=== PATIENT | male | born 1945 | race African-American/Black ===

== ENCOUNTER 2022-12-24 13:25 | Inpatient (IN) | payer MEDICARE, MEDICAID ==
[~2022-12-24] VITALS: Ht 175.3 cm; Wt 59.9 kg
[2022-12-24] MEDS ORDERED: ACETAMINOPHEN 325MG TABLET PO STA (13:49)
[2022-12-24] MEDS ORDERED: ACETAMINOPHEN 325MG TABLET PO NR (13:49)
[2022-12-24] MEDS ORDERED: SODIUM CHLORIDE 0.9% 1,000 ML IV ONE (14:00)
[2022-12-24] MEDS ORDERED: ONDANSETRON HCL 4MG/2ML INJ IV ONE (14:00)
[2022-12-24] MEDS ORDERED: ONDANSETRON HCL 4MG/2ML INJ IV NR (14:00)
[2022-12-24 14:37] LABS: HEMATOCRIT. 37.1 % (42.0-52.0); HEMOGLOBIN. 12.7 g/dL (14.0-18.0); MEAN CORPUSCULAR HEMOGLOBIN 31.6 pg (28.0-32.0); MEAN CORPUSCULAR VOLUME 91.9 fL (80.0-94.0); MEAN PLATELET VOLUME 8.1 fl (7.4-10.4); PLATELET 354 x1000/uL (130-400); RED BLOOD CELL COUNT 4.04 mill/uL (4.7-6.1); RED CELL DISTRIBUTION WIDTH 13.4 % (11.6-14.6)
[2022-12-24 14:57] LABS: CHLORIDE 99 mEq/L (98-107)
[2022-12-24 15:00] LABS: PLATELET ESTIMATE NORMAL
[2022-12-24] MEDS ORDERED: VANCOMYCIN 1G PREMIX 200 ML IV NR ×2 (15:15)
[2022-12-24] MEDS ORDERED: PIPERACILLIN/TAZ 3.375G PREMIX 50 ML IV NR (15:15)
[2022-12-24] MEDS: SODIUM CHLORIDE 0.9% 1,000 ML IV SCH (23:07)
[2022-12-25 02:34] LABS: CLARITY URINE BLOODY (CLEAR); COLOR URINE RED (YELLOW); PH URINE 7.5 (4.5-8.0); PROTEIN URINE 3+ (NEGATIVE); SPECIFIC GRAVITY URINE 1.015 (1.005-1.030)
[2022-12-25 02:35] LABS: KETONES URINE 2+ (NEGATIVE); LEUKOCYTE ESTERASE URINE 2+ (NEGATIVE); NITRITE URINE POSITIVE (NEGATIVE); OCCULT BLOOD URINE 4+ (NEGATIVE); UROBILINOGEN URINE 0.2 E.U./dL (0.2-1.0)
[2022-12-25 11:45] VITALS: BP 126/67
[2022-12-25] MEDS: SODIUM CHLORIDE 0.9% 1,000 ML IV SCH (14:29)
[2022-12-25 16:00] VITALS: BP 131/57
[2022-12-25] MEDS ORDERED: CLONIDINE 0.1MG TABLET PO PRN (16:30)
[2022-12-25] MEDS ORDERED: ONDANSETRON HCL 4MG/2ML INJ IV PRN (16:30)
[2022-12-25] MEDS ORDERED: IPRATROPIUM/ALBUTEROL 0.5-3(2.5)MG/3ML NEB HHN PRN (16:30)
[2022-12-25] MEDS ORDERED: DIPHENHYDRAMINE 50MG/ML VIAL IV PRN (16:30)
[2022-12-25] MEDS ORDERED: ACETAMINOPHEN 325MG TABLET PO PRN (16:30)
[2022-12-25] MEDS ORDERED: ALBUTEROL (0.083%) 2.5MG/3ML NEB HHN PRN (16:45)
[2022-12-25] MEDS ORDERED: IPRATROPIUM BROMIDE (0.02%) 0.5MG/2.5ML NEB HHN PRN (16:45)
[2022-12-25] MEDS ORDERED: DEXTROSE 50% WATER 50ML SYRINGE IV PRN (17:15)
[2022-12-25 19:01] VITALS: BP 125/86
[2022-12-25 20:00] VITALS: BP 115/47
[2022-12-25] MEDS: INSULIN LISPRO 100 UNITS/ML SUBCUT SCH (20:39)
[2022-12-25] MEDS: BLOOD SUGAR DIAGNOSTIC STRIP TEST SCH (20:40)
[2022-12-25] MEDS: PIPERACILLIN/TAZOBACTAM 3.375 G in DEXTROSE 5% WATER 50 ML IV SCH (20:44)
[2022-12-26] VITALS: BP 114/50
[2022-12-26] MEDS: SODIUM CHLORIDE 0.9% 1,000 ML IV SCH ×3 (00:42→15:27)
[2022-12-26 04:00] VITALS: BP 113/48
[2022-12-26] MEDS ORDERED: VANCOMYCIN 500MG PREMIX 100 ML IV SCH (05:00)
[2022-12-26] MEDS: BLOOD SUGAR DIAGNOSTIC STRIP TEST SCH ×4 (06:43→20:45)
[2022-12-26 06:44] LABS: HEMATOCRIT. 28.2 % (42.0-52.0); HEMOGLOBIN. 9.9 g/dL (14.0-18.0); MEAN CORPUSCULAR VOLUME 91.2 fL (80.0-94.0); MEAN PLATELET VOLUME 8.4 fl (7.4-10.4); PLATELET 273 x1000/uL (130-400); RED BLOOD CELL COUNT 3.09 mill/uL (4.7-6.1)
[2022-12-26 07:12] LABS: CHLORIDE 109 mEq/L (98-107)
[2022-12-26 08:00] VITALS: BP 170/53
[2022-12-26] MEDS: INSULIN LISPRO 100 UNITS/ML SUBCUT SCH ×4 (08:02→20:44)
[2022-12-26] MEDS: PIPERACILLIN/TAZOBACTAM 3.375 G in DEXTROSE 5% WATER 50 ML IV SCH ×2 (08:58→20:55)
[2022-12-26 10:47] LABS: PLATELET ESTIMATE NORMAL
[2022-12-26] MEDS ORDERED: TAMSULOSIN HCL 0.4MG SR CAPSULE PO SCH (11:30)
[2022-12-26 12:00] VITALS: BP 111/52
[2022-12-26] MEDS ORDERED: VANCOMYCIN 500MG PREMIX 100 ML IV NR (12:00)
[2022-12-26] MEDS: POTASSIUM CHLORIDE 20MEQ TABLET SR PO SCH ×2 (12:42→13:43)
[2022-12-26 16:00] VITALS: BP 128/58
[2022-12-26 20:00] VITALS: BP 127/46
[2022-12-26] MEDS ORDERED: EPOETIN ALFA-EPBX 4,000 UNIT/ML VIAL SUBCUT NR (21:00)
[2022-12-27] VITALS: BP 124/54
[2022-12-27] MEDS: SODIUM CHLORIDE 0.9% 1,000 ML IV SCH ×4 (03:20→22:20)
[2022-12-27 04:00] VITALS: BP 126/50
[2022-12-27 08:00] VITALS: BP 112/55
[2022-12-27 08:53] LABS: BASOPHILS % 0.4 % (0.0-2.0); EOSINOPHILS % 3.9 % (0.0-5.0); HEMATOCRIT. 27.2 % (42.0-52.0); HEMOGLOBIN. 9.7 g/dL (14.0-18.0); LYMPHOCYTES % 12.6 % (20.0-50.0); MEAN CORPUSCULAR HEMOGLOBIN 32.2 pg (28.0-32.0); MEAN CORPUSCULAR VOLUME 90.2 fL (80.0-94.0); MEAN PLATELET VOLUME 8.5 fl (7.4-10.4); MONOCYTES % 10.5 % (2.0-8.0); NEUTROPHILS % 72.6 % (40.0-76.0); PLATELET 264 x1000/uL (130-400); RED BLOOD CELL COUNT 3.01 mill/uL (4.7-6.1); RED CELL DISTRIBUTION WIDTH 12.8 % (11.6-14.6)
[2022-12-27 09:01] LABS: CHLORIDE 108 mEq/L (98-107)
[2022-12-27] MEDS: PIPERACILLIN/TAZOBACTAM 3.375 G in DEXTROSE 5% WATER 50 ML IV SCH ×2 (09:44→20:41)
[2022-12-27] MEDS ORDERED: POTASSIUM CHLORIDE 20MEQ TABLET SR PO NR (09:45)
[2022-12-27] MEDS ORDERED: POTASSIUM CHLORIDE INJ 40 MEQ in DEXT 5% WATER 500 ML IV ONE (11:00)
[2022-12-27 12:00] VITALS: BP 116/53
[2022-12-27 16:02] VITALS: BP 119/68
[2022-12-27] MEDS ORDERED: POTASSIUM PHOS,M-BASIC-D-BASIC 20 MMOL in DEXT 5% WATER 243.3333 ML IV ONE (18:00)
[2022-12-27] MEDS ORDERED: IPRATROPIUM/ALBUTEROL 0.5-3(2.5)MG/3ML NEB HHN PRN (18:45)
[2022-12-27] MEDS ORDERED: IPRATROPIUM BROMIDE (0.02%) 0.5MG/2.5ML NEB HHN PRN (18:45)
[2022-12-27] MEDS ORDERED: ALBUTEROL (0.083%) 2.5MG/3ML NEB HHN PRN (18:45)
[2022-12-27 20:00] VITALS: BP 120/58
[2022-12-28] VITALS: BP 125/63
[2022-12-28 04:00] VITALS: BP 131/58
[2022-12-28 05:25] LABS: PHOSPHORUS 3.5 mg/dL (2.5-4.9)
[2022-12-28 06:03] LABS: BASOPHILS % 0.4 % (0.0-2.0); EOSINOPHILS % 3.6 % (0.0-5.0); HEMATOCRIT. 28.2 % (42.0-52.0); HEMOGLOBIN. 9.8 g/dL (14.0-18.0); LYMPHOCYTES % 12.5 % (20.0-50.0); MEAN CORPUSCULAR HEMOGLOBIN 31.7 pg (28.0-32.0); MEAN CORPUSCULAR VOLUME 91.5 fL (80.0-94.0); MEAN PLATELET VOLUME 8.1 fl (7.4-10.4); MONOCYTES % 11.6 % (2.0-8.0); NEUTROPHILS % 71.9 % (40.0-76.0); PLATELET 280 x1000/uL (130-400); RED BLOOD CELL COUNT 3.08 mill/uL (4.7-6.1); RED CELL DISTRIBUTION WIDTH 12.8 % (11.6-14.6)
[2022-12-28] MEDS: SODIUM CHLORIDE 0.9% 1,000 ML IV SCH ×3 (06:18→21:34)
[2022-12-28 08:00] VITALS: BP 129/55
[2022-12-28] MEDS: PIPERACILLIN/TAZOBACTAM 3.375 G in DEXTROSE 5% WATER 50 ML IV SCH ×2 (09:00→21:34)
[2022-12-28] MEDS ORDERED: LACTULOSE 20G/30ML UDC PO PRN (11:30)
[2022-12-28] MEDS: DOCUSATE SODIUM 250MG CAPSULE PO SCH (11:54)
[2022-12-28 12:00] VITALS: BP 119/62
[2022-12-28] MEDS ORDERED: VANCOMYCIN 750MG PREMIX 150 ML IV SCH (13:00)
[2022-12-28 16:00] VITALS: BP 122/64
[2022-12-28 20:00] VITALS: BP 108/52
[2022-12-29] VITALS: BP 124/56
[2022-12-29 04:00] VITALS: BP 126/56
[2022-12-29] MEDS: SODIUM CHLORIDE 0.9% 1,000 ML IV SCH ×2 (06:17→20:59)
[2022-12-29 08:00] VITALS: BP 123/57
[2022-12-29] MEDS ORDERED: POTASSIUM CHLORIDE 20MEQ TABLET SR PO NR (08:30)
[2022-12-29] MEDS: PIPERACILLIN/TAZOBACTAM 3.375 G in DEXTROSE 5% WATER 50 ML IV SCH ×2 (08:33→20:59)
[2022-12-29] MEDS: DOCUSATE SODIUM 250MG CAPSULE PO SCH (08:33)
[2022-12-29 12:00] VITALS: BP 116/57
[2022-12-29] MEDS: VANCOMYCIN 500MG PREMIX 100 ML IV SCH (12:07)
[2022-12-29] MEDS ORDERED: POTASSIUM CHLORIDE 20MEQ/PACKET PO NR (14:00)
[2022-12-29 16:00] VITALS: BP 123/79
[2022-12-29 20:00] VITALS: BP 114/53
[2022-12-30] VITALS: BP 115/55
[2022-12-30 04:00] VITALS: BP 142/64
[2022-12-30 06:14] LABS: BASOPHILS % 0.3 % (0.0-2.0); EOSINOPHILS % 4.8 % (0.0-5.0); HEMOGLOBIN. 7.9 g/dL (14.0-18.0); LYMPHOCYTES % 9.2 % (20.0-50.0); MEAN CORPUSCULAR HEMOGLOBIN 31.4 pg (28.0-32.0); MEAN CORPUSCULAR VOLUME 91.5 fL (80.0-94.0); MEAN PLATELET VOLUME 8.1 fl (7.4-10.4); MONOCYTES % 8.1 % (2.0-8.0); NEUTROPHILS % 77.6 % (40.0-76.0); PLATELET 318 x1000/uL (130-400); RED BLOOD CELL COUNT 2.52 mill/uL (4.7-6.1); RED CELL DISTRIBUTION WIDTH 12.9 % (11.6-14.6)
[2022-12-30 06:18] LABS: INR 1.1; PROTHROMBIN TIME 11.7 sec (9.6-11.0)
[2022-12-30 07:54] LABS: PHOSPHORUS 2.2 mg/dL (2.5-4.9)
[2022-12-30 08:00] VITALS: BP 129/61
[2022-12-30] MEDS: DOCUSATE SODIUM 250MG CAPSULE PO SCH ×2 (09:00→09:21)
[2022-12-30] MEDS: PIPERACILLIN/TAZOBACTAM 3.375 G in DEXTROSE 5% WATER 50 ML IV SCH ×2 (09:20→20:31)
[2022-12-30] MEDS: SODIUM CHLORIDE 0.9% 1,000 ML IV SCH (09:21)
[2022-12-30] MEDS ORDERED: POTASSIUM CHLORIDE 20MEQ TABLET SR PO NR (10:15)
[2022-12-30] MEDS: SODIUM CHL 0.45% + KCL 20MEQ/L 1,000 ML IV SCH (11:12)
[2022-12-30 12:00] VITALS: BP 133/60
[2022-12-30] MEDS ORDERED: MAGNESIUM 2 G PREMIX 50 ML IV NR (12:00)
[2022-12-30] MEDS ORDERED: POTASSIUM PHOS,M-BASIC-D-BASIC 30 MMOL in SODIUM CHLORIDE 0.9% 500 ML IV NR (12:00)
[2022-12-30 16:00] VITALS: BP 135/60
[2022-12-30] MEDS: VANCOMYCIN 500MG PREMIX 100 ML IV SCH (16:11)
[2022-12-30 20:00] VITALS: BP 130/58
[2022-12-31] VITALS: BP 134/62
[2022-12-31 04:00] VITALS: BP 138/64
[2022-12-31 06:23] LABS: BASOPHILS % 0.3 % (0.0-2.0); HEMATOCRIT. 22.8 % (42.0-52.0); HEMOGLOBIN. 7.8 g/dL (14.0-18.0); LYMPHOCYTES % 9.9 % (20.0-50.0); MEAN CORPUSCULAR VOLUME 90.5 fL (80.0-94.0); MEAN PLATELET VOLUME 8.1 fl (7.4-10.4); MONOCYTES % 6.9 % (2.0-8.0); NEUTROPHILS % 76.9 % (40.0-76.0); PLATELET 310 x1000/uL (130-400); RED BLOOD CELL COUNT 2.52 mill/uL (4.7-6.1)
[2022-12-31 06:39] LABS: PHOSPHORUS 3.3 mg/dL (2.5-4.9)
[2022-12-31 08:00] VITALS: BP 149/62
[2022-12-31] MEDS: SODIUM CHL 0.45% + KCL 20MEQ/L 1,000 ML IV SCH (08:50)
[2022-12-31] MEDS ORDERED: POTASSIUM CHLORIDE 20MEQ TABLET SR PO SCH (09:00)
[2022-12-31] MEDS: SODIUM CHLORIDE 0.9% 1,000 ML IV SCH (09:22)
[2022-12-31] MEDS: POTASSIUM-SODIUM PHOSPHATE POWDER PACKET PO SCH ×2 (11:01→17:40)
[2022-12-31] MEDS: DOCUSATE SODIUM 250MG CAPSULE PO SCH (11:04)
[2022-12-31 12:00] VITALS: BP 125/47
[2022-12-31 16:00] VITALS: BP 123/47
[2022-12-31 20:00] VITALS: BP 143/58
[2023-01-01] VITALS (11 sets, daily range): BP systolic 106–140; BP diastolic 47–65
[2023-01-01] MEDS: SODIUM CHL 0.45% + KCL 20MEQ/L 1,000 ML IV SCH (05:24)
[2023-01-01 07:28] LABS: BASOPHILS % 0.5 % (0.0-2.0); EOSINOPHILS % 4.7 % (0.0-5.0); LYMPHOCYTES % 10.3 % (20.0-50.0); MEAN CORPUSCULAR HEMOGLOBIN 32.1 pg (28.0-32.0); MEAN CORPUSCULAR VOLUME 90.3 fL (80.0-94.0); MEAN PLATELET VOLUME 7.8 fl (7.4-10.4); MONOCYTES % 6.6 % (2.0-8.0); NEUTROPHILS % 77.9 % (40.0-76.0); PLATELET 334 x1000/uL (130-400); RED BLOOD CELL COUNT 2.25 mill/uL (4.7-6.1); RED CELL DISTRIBUTION WIDTH 13.1 % (11.6-14.6)
[2023-01-01 07:45] LABS: CHLORIDE 101 mEq/L (98-107)
[2023-01-01 07:54] LABS: PHOSPHORUS 2.3 mg/dL (2.5-4.9)
[2023-01-01 07:55] LABS: HEMATOCRIT. 20.3 % (42.0-52.0); HEMOGLOBIN. 7.2 g/dL (14.0-18.0)
[2023-01-01] MEDS: DOCUSATE SODIUM 250MG CAPSULE PO SCH ×2 (09:00→10:50)
[2023-01-01] MEDS ORDERED: POTASSIUM CHLORIDE 20MEQ TABLET SR PO NR ×2 (10:30→14:00)
[2023-01-01] MEDS ORDERED: MAGNESIUM 2 G PREMIX 50 ML IV NR (11:30)
[2023-01-01] MEDS ORDERED: POTASSIUM CHLORIDE INJ 40 MEQ in SODIUM CHLORIDE 0.45% 1,000 ML IV SCH (11:30)
[2023-01-01] MEDS ORDERED: POTASSIUM-SODIUM PHOSPHATE POWDER PACKET PO SCH (17:00)
== END 2023-01-01 23:53 | DRG 871 ==
LOC: ER 13:25 → MICUSO 16:54 → EDBEDREQ 16:58 → 6EST 12-25 11:39
PROVIDERS: ADMIT Internal Medicine; ATTEND Internal Medicine
PROC: 30233N1 Transfusion of Nonautologous Red Blood Cells into Peripheral Vein, Percutaneous Approach (ICD-10-PCS; principal; 2023-01-01)
DX: A41.9 Sepsis, unspecified organism (principal); G92.8 Other toxic encephalopathy; N17.0 Acute kidney failure with tubular necrosis; N39.0 Urinary tract infection, site not specified; N13.8 Other obstructive and reflux uropathy; J44.9 Chronic obstructive pulmonary disease, unspecified; E11.22 Type 2 diabetes mellitus with diabetic chronic kidney disease; K56.41 Fecal impaction; N32.0 Bladder-neck obstruction; Z20.822 Contact with and (suspected) exposure to COVID-19; E83.42 Hypomagnesemia; T14.8XXA Other injury of unspecified body region, initial encounter; D63.1 Anemia in chronic kidney disease; E78.5 Hyperlipidemia, unspecified; E87.6 Hypokalemia; F64.0 Transsexualism; I12.9 Hypertensive chronic kidney disease with stage 1 through stage 4 chronic kidney disease, or unspecified chronic kidney disease; K21.9 Gastro-esophageal reflux disease without esophagitis; N18.2 Chronic kidney disease, stage 2 (mild); Z82.49 Family history of ischemic heart disease and other diseases of the circulatory system; Z68.30 Body mass index [BMI] 30.0-30.9, adult; Z88.8 Allergy status to other drugs, medicaments and biological substances
CPT/HCPCS: 36415; 71045; 74176; 80048; 80053; 80202; 81003; 82010; 82962; 83036; 83605; 83735; 84100; 84145; 84484; 85025; 86850; 86900; 86920; 87426; 87804; 93970; 94640; 99285; A6261; C1893; J1815; J2405; J2543; J3370; J3475; J3480; J3490; J7030; J7040; J7060; P9016; A4315

== ENCOUNTER 2024-02-20 18:50 | Inpatient (IN) | payer MEDICAID, MEDICARE ==
[~2024-02-20] VITALS: Ht 175.3 cm; Wt 74.8 kg
[2024-02-20 21:55] LABS: BASOPHILS % 0.5 % (0.0-2.0); EOSINOPHILS % 12.8 % (0.0-5.0); HEMATOCRIT. 31.5 % (36.0-48.0); HEMOGLOBIN. 10.8 g/dL (12.0-16.0); LYMPHOCYTES % 15.7 % (20.0-50.0); MEAN CORPUSCULAR HEMOGLOBIN 31.7 pg (28.0-32.0); MEAN CORPUSCULAR HGB CONC 34.2 g/dL (31.0-37.0); MEAN CORPUSCULAR VOLUME 92.5 fL (81.0-99.0); MEAN PLATELET VOLUME 7.9 fl (7.4-10.4); MONOCYTES % 7.5 % (2.0-8.0); NEUTROPHILS % 63.5 % (40.0-76.0); PLATELET 267 x1000/uL (130-400); RED CELL DISTRIBUTION WIDTH 12.8 % (11.6-14.6); WHITE BLOOD COUNT 9.1 x1000/uL (4.5-11.0)
[2024-02-20 22:11] LABS: ALANINE AMINOTRANSFERASE < 7 IU/L (10-49); ASPARTATE AMINOTRANSFERASE 12 IU/L (<34); BILIRUBIN TOTAL 0.3 mg/dL (0.1-1.0); CALCIUM 8.5 mg/dL (8.7-10.4); CARBON DIOXIDE 26 mEq/L (21-32); CHLORIDE 105 mEq/L (98-107); CREATININE 1.6 mg/dL (0.6-1.0); GLUCOSE 212 mg/dL (70-105); PROTEIN TOTAL 6.9 g/dL (6.0-8.3); SODIUM 138 mEq/L (136-145); TROPONIN I HIGH SENSITIVITY 4 ng/L (3.0-34); UREA NITROGEN BLOOD 28 mg/dL (9-23)
[2024-02-21] VITALS (7 sets, daily range): BP systolic 91–171; BP diastolic 50–78; PULSE 60–78; RESP 17–20; TEMP 96.4–97.9
[2024-02-21] MEDS ORDERED: IPRATROPIUM/ALBUTEROL 0.5-3(2.5)MG/3ML NEB HHN PRN (09:00)
[2024-02-21] MEDS ORDERED: ONDANSETRON HCL 4MG/2ML INJ IV PRN (09:00)
[2024-02-21] MEDS ORDERED: DIPHENHYDRAMINE 50MG/ML VIAL IV PRN (09:00)
[2024-02-21] MEDS: CLONIDINE 0.1MG TABLET PO PRN (10:09)
[2024-02-21] MEDS: ACETAMINOPHEN 325MG TABLET PO PRN (10:09)
[2024-02-22] VITALS: BP 93/52; PULSE 71; RESP 18; TEMP 98.1
[2024-02-22 04:00] VITALS: BP 95/51; PULSE 66; RESP 18; TEMP 97.9
[2024-02-22 06:28] LABS: BASOPHILS % 0.5 % (0.0-2.0); EOSINOPHILS % 11.2 % (0.0-5.0); HEMATOCRIT. 28.3 % (36.0-48.0); HEMOGLOBIN. 9.7 g/dL (12.0-16.0); LYMPHOCYTES % 18.7 % (20.0-50.0); MEAN CORPUSCULAR HEMOGLOBIN 31.9 pg (28.0-32.0); MEAN CORPUSCULAR HGB CONC 34.2 g/dL (31.0-37.0); MEAN CORPUSCULAR VOLUME 93.1 fL (81.0-99.0); MEAN PLATELET VOLUME 8.1 fl (7.4-10.4); MONOCYTES % 8.5 % (2.0-8.0); NEUTROPHILS % 61.1 % (40.0-76.0); PLATELET 236 x1000/uL (130-400); RED BLOOD CELL COUNT 3.03 mill/uL (4.2-5.4); RED CELL DISTRIBUTION WIDTH 12.8 % (11.6-14.6); WHITE BLOOD COUNT 7.8 x1000/uL (4.5-11.0)
[2024-02-22 06:42] LABS: ALANINE AMINOTRANSFERASE < 7 IU/L (10-49); ASPARTATE AMINOTRANSFERASE 11 IU/L (<34); BILIRUBIN TOTAL 0.5 mg/dL (0.1-1.0); CALCIUM 9.2 mg/dL (8.7-10.4); CARBON DIOXIDE 25 mEq/L (21-32); CHLORIDE 107 mEq/L (98-107); CREATININE 1.7 mg/dL (0.6-1.0); GLUCOSE 126 mg/dL (70-105); POTASSIUM 4.1 mEq/L (3.5-5.1); PROTEIN TOTAL 7.3 g/dL (6.0-8.3); SODIUM 137 mEq/L (136-145); UREA NITROGEN BLOOD 34 mg/dL (9-23)
[2024-02-22 08:00] VITALS: BP 100/42; PULSE 65; RESP 20; TEMP 94.6
[2024-02-22] MEDS: CEFTRIAXONE 1GM/50ML 50 ML IV SCH (10:30)
[2024-02-22 12:00] VITALS: BP 103/51; PULSE 62; RESP 19; TEMP 95.6
[2024-02-22 14:07] LABS: CLARITY URINE CLOUDY (CLEAR); COLOR URINE YELLOW (YELLOW); GLUCOSE URINE NEGATIVE (NEGATIVE); KETONES URINE NEGATIVE (NEGATIVE); LEUKOCYTE ESTERASE URINE 3+ (NEGATIVE); NITRITE URINE NEGATIVE (NEGATIVE); OCCULT BLOOD URINE 3+ (NEGATIVE); PROTEIN URINE TRACE (NEGATIVE); SPECIFIC GRAVITY URINE 1.017 (1.005-1.030); UROBILINOGEN URINE 0.2 E.U./dL (0.2-1.0)
[2024-02-22 14:23] LABS: RBC URINE 50-100 /hpf (0-2); SQUAMOUS EPITHELIAL CELL URINE 1+ /lpf (RARE/1+); WBC URINE 50-100 /hpf (0-2)
[2024-02-22 14:24] LABS: BACTERIA URINE 1+; YEAST URINE NONE SEEN
[2024-02-22 16:00] VITALS: BP 99/47; PULSE 65; RESP 19; TEMP 96.6
[2024-02-22 20:00] VITALS: BP 106/43; PULSE 59; RESP 18; TEMP 98.1
[2024-02-22] MEDS: PIPERACILLIN/TAZO 3.375G/50ML 50 ML IV SCH (22:39)
[2024-02-23] VITALS: BP 110/45; PULSE 66; RESP 18; TEMP 97.5
[2024-02-23 04:00] VITALS: BP 110/47; PULSE 69; RESP 18; TEMP 98.7
[2024-02-23 08:00] VITALS: BP 116/48; PULSE 56; RESP 18; TEMP 97.5
[2024-02-23 12:00] VITALS: BP 105/51; PULSE 61; RESP 19; TEMP 97
[2024-02-23 16:00] VITALS: BP 110/50; PULSE 66; RESP 19; TEMP 97.4
[2024-02-23 20:00] VITALS: BP 93/37; PULSE 51; RESP 18; TEMP 98.1
[2024-02-24] VITALS: BP_SYST 101; BP_SYST 108; BP_DIAS 42; BP_DIAS 54; PULSE 62; PULSE 67; RESP 16; RESP 18; TEMP 97.8; TEMP 99.4
[2024-02-24 04:00] VITALS: BP 99/48; PULSE 70; RESP 18; TEMP 97.7
[2024-02-24 08:00] VITALS: BP 129/70; PULSE 90; RESP 20; TEMP 98.4
[2024-02-24 12:00] VITALS: BP 128/74; PULSE 91; RESP 20; TEMP 98.2
[2024-02-24 16:00] VITALS: BP 124/68; PULSE 86; RESP 18; TEMP 98.7
[2024-02-24 20:00] VITALS: BP 132/51; PULSE 65; RESP 18; TEMP 97.3
[2024-02-25] VITALS: BP 108/54; PULSE 67; RESP 16; TEMP 99.4
[2024-02-25 04:00] VITALS: BP 97/58; PULSE 84; RESP 16; TEMP 97.6
[2024-02-25 08:00] VITALS: BP 133/55; PULSE 57; RESP 19; TEMP 97.9
[2024-02-25 12:00] VITALS: BP 108/63; PULSE 56; RESP 18; TEMP 97.9
[2024-02-25 16:00] VITALS: BP 130/54; PULSE 57; RESP 19; TEMP 97.7
[2024-02-25] MEDS: MEROPENEM 1G/100ML 100 ML IV SCH (18:47)
[2024-02-25 20:00] VITALS: BP 116/51; PULSE 62; RESP 19; TEMP 97.5
[2024-02-26] VITALS: BP 116/50; PULSE 53; RESP 18; TEMP 97.4
[2024-02-26 04:00] VITALS: BP 107/37; PULSE 54; RESP 19; TEMP 97.5
[2024-02-26 08:00] VITALS: BP 120/52; PULSE 54; RESP 20; TEMP 97.7
[2024-02-26 12:00] VITALS: BP 127/51; PULSE 57; RESP 18; TEMP 96.8
[2024-02-26] MEDS ORDERED: LIDOCAINE HCL 1% 10 MG/ML 10ML VIAL ONE (12:10)
[2024-02-26 14:30] VITALS: BP 105/61; PULSE 72; TEMP 96.8; O2SAT 100
[2024-02-26 16:00] VITALS: BP 125/53; PULSE 61; RESP 18; TEMP 98.1
== END 2024-02-26 17:50 | DRG 699 ==
LOC: ER 18:50 → EDBEDREQTM 21:33 → EDBEDREQ 21:33 → 6EST 02-21 00:46
PROVIDERS: ADMIT Internal Medicine; ATTEND Internal Medicine
PROC: 02HV33Z Insertion of Infusion Device into Superior Vena Cava, Percutaneous Approach (ICD-10-PCS; principal; 2024-02-26)
PROC: B548ZZA Ultrasonography of Superior Vena Cava, Guidance (ICD-10-PCS; 2024-02-26)
DX: T83.028A Displacement of other urinary catheter, initial encounter (principal); N39.0 Urinary tract infection, site not specified; E11.22 Type 2 diabetes mellitus with diabetic chronic kidney disease; E78.5 Hyperlipidemia, unspecified; D64.9 Anemia, unspecified; J44.9 Chronic obstructive pulmonary disease, unspecified; B96.20 Unspecified Escherichia coli [E. coli] as the cause of diseases classified elsewhere; I12.9 Hypertensive chronic kidney disease with stage 1 through stage 4 chronic kidney disease, or unspecified chronic kidney disease; N18.9 Chronic kidney disease, unspecified; I25.10 Atherosclerotic heart disease of native coronary artery without angina pectoris; K21.9 Gastro-esophageal reflux disease without esophagitis; Y83.8 Other surgical procedures as the cause of abnormal reaction of the patient, or of later complication, without mention of misadventure at the time of the procedure; Y92.89 Other specified places as the place of occurrence of the external cause; Z82.49 Family history of ischemic heart disease and other diseases of the circulatory system; Z88.8 Allergy status to other drugs, medicaments and biological substances
CPT/HCPCS: 36415; 36573; 71045; 80053; 81003; 82962; 83605; 83880; 84484; 85025; 87077; 87186; 93005; 93970; 99285; C1893; J0696; J2185; J2543; J3490